=== PATIENT | female | born 1945 | race African-American/Black ===

== ENCOUNTER 2018-03-19 16:53 | Inpatient (IN) | payer OTHER ==
[~2018-03-19] VITALS: Ht 167.6 cm; Wt 90.7 kg
--- NOTE | 2018-03-19 17:16 | Emergency Room Report ---
History of Present Illness General Chief Complaint: Altered Level of Consciousness Source: Patient, EMS Present Illness HPI Patient is sent in to the ER by paramedics From a nursing facility/rehabilitation center Unfortunately patient is sent in without any list of medications Or medical history Patient is unable to provide history at that time given her symptomatic presentation Patient was noted to have syncope by the nursing staff Presents nauseated and vomiting Unclear regarding other trauma unclear regarding medications or change in medications Allergies: Coded Allergies: No Known Allergies (Unverified , 03/19/18) Patient History Limited by: medical condition Past Medical History: see triage record Pertinent Family History: unable to obtain Reviewed Nursing Documentation: PMH: Agreed; PSxH: Agreed Nursing Documentation-PMH Past Medical History: No History, Except For Hx Hypertension: Yes Review of Systems All Other Systems: limited - Other than the ones mentioned in the history of present illness all others are reviewed however they do stay limited due to the patient's mental status Physical Exam Vital Signs Date Time Temp Pulse Resp B/P (MAP) Pulse Ox O2 Delivery O2 Flow Rate FiO2 03/19/18 16:46 98.1 60 20 114/76 100 Non-Rebreather 15.0 98.1 Sp02 EP Interpretation: reviewed, normal General Appearance: moderate distress - Appears nauseated, uncomfortable, has eyes closed Head: normocephalic, atraumatic Eyes: bilateral eye PERRL ENT: normal pharynx, no angioedema Neck: supple Respiratory: no respiratory distress, no retraction, crackles - Bilaterally Cardiovascular #1: regular rate, rhythm Gastrointestinal: non tender, soft, no mass Musculoskeletal: other - Patient holding the vomiting bag, does not show any signs of focal deficit, however does not follow my commands Neurologic: responsive - To physical and verbal stimuli Skin: normal color, no rash Lymphatic: no adenopathy Medical Decision Making Diagnostic Impression: Primary Impression: Syncope Additional Impression: Encephalopathy ER Course Patient is a fairly complex patient with multiple differential to consideration including but not limited to cardiac cardiopulmonary and vascular emergencies Intracranial pathology is also entertained I was able to make contact with management at the facility Reports the patient has had a fairly large previous CVA It has affected her speech Patient's workup here shows normal blood work CT head does not show any acute pathology And patient admitted for further care Labs Test 03/19/18 17:33 03/19/18 17:53 5/17/18 04:00 White Blood Count 7.1 K/UL (4.8-10.8) 6.1 K/UL (4.8-10.8) Red Blood Count 4.77 M/UL (4.20-5.40) 4.48 M/UL (4.20-5.40) Hemoglobin 14.5 G/DL (12.0-16.0) 13.5 G/DL (12.0-16.0) Hematocrit 44.8 % (37.0-47.0) 42.1 % (37.0-47.0) Mean Corpuscular Volume 94 FL (80-99) 94 FL (80-99) Mean Corpuscular Hemoglobin 30.3 PG (27.0-31.0) 30.2 PG (27.0-31.0) Mean Corpuscular Hemoglobin Concent 32.3 G/DL (32.0-36.0) 32.2 G/DL (32.0-36.0) Red Cell Distribution Width 13.3 % (11.6-14.8) 13.1 % (11.6-14.8) Platelet Count 278 K/UL (150-450) 261 K/UL (150-450) Mean Platelet Volume 8.2 FL (6.5-10.1) 9.2 FL (6.5-10.1) Neutrophils (%) (Auto) 38.6 % (45.0-75.0) 46.0 % (45.0-75.0) Lymphocytes (%) (Auto) 48.8 % (20.0-45.0) 42.1 % (20.0-45.0) Monocytes (%) (Auto) 8.9 % (1.0-10.0) 9.6 % (1.0-10.0) Eosinophils (%) (Auto) 2.5 % (0.0-3.0) 1.4 % (0.0-3.0) Basophils (%) (Auto) 1.2 % (0.0-2.0) 0.9 % (0.0-2.0) Sodium Level 142 MMOL/L (136-145) 142 MMOL/L (136-145) Potassium Level 4.6 MMOL/L (3.5-5.1) 4.5 MMOL/L (3.5-5.1) Chloride Level 104 MMOL/L (98-107) 105 MMOL/L (98-107) Carbon Dioxide Level 31 MMOL/L (21-32) 31 MMOL/L (21-32) Anion Gap 7 mmol/L (5-15) 6 mmol/L (5-15) Blood Urea Nitrogen 20 mg/dL (7-18) 18 mg/dL (7-18) Creatinine 1.1 MG/DL (0.55-1.30) 0.9 MG/DL (0.55-1.30) Estimat Glomerular Filtration Rate 49.1 mL/min (>60) > 60 mL/min (>60) Glucose Level 100 MG/DL (74-106) 93 MG/DL (74-106) Lactic Acid Level 0.80 mmol/L (0.66-2.22) Calcium Level 9.4 MG/DL (8.5-10.1) 9.0 MG/DL (8.5-10.1) Total Bilirubin 0.2 MG/DL (0.2-1.0) Aspartate Amino Transf (AST/SGOT) 10 U/L (15-37) Alanine Aminotransferase (ALT/SGPT) 21 U/L (12-78) Alkaline Phosphatase 74 U/L (46-116) Total Creatine Kinase 35 U/L (26-308) Creatine Kinase MB 0.6 NG/ML (0.0-3.6) Creatine Kinase MB Relative Index 1.7 Troponin I 0.000 ng/mL (0.000-0.056) 0.000 ng/mL (0.000-0.056) Pro-B-Type Natriuretic Peptide 354 pg/mL (0-125) Total Protein 8.0 G/DL (6.4-8.2) Albumin 3.5 G/DL (3.4-5.0) Globulin 4.5 g/dL Albumin/Globulin Ratio 0.8 (1.0-2.7) Lipase 173 U/L (73-393) Urine Color Yellow Urine Appearance Clear Urine pH 5 (4.5-8.0) Urine Specific [place] 1.020 (1.005-1.035) Urine Protein 2+ (NEGATIVE) Urine Glucose (UA) Negative (NEGATIVE) Urine Ketones Negative (NEGATIVE) Urine Occult Blood 1+ (NEGATIVE) Urine Nitrite Positive (NEGATIVE) Urine Bilirubin Negative (NEGATIVE) Urine Urobilinogen Normal MG/DL (0.0-1.0) Urine Leukocyte Esterase 2+ (NEGATIVE) Urine RBC 0-2 /HPF (0 - 2) Urine WBC 2-4 /HPF (0 - 2) Urine Squamous Epithelial Cells Few /LPF (NONE/OCC) Urine Amorphous Sediment Few /LPF (NONE) Urine Bacteria Few /HPF (NONE) EKG Diagnostic Results Rate: normal Rhythm: NSR ST Segments: other - Nonspecific ST and T-wave changes Rhythm Strip Diag. Results EP Interpretation: yes Rate: 88 Rhythm: NSR, no PVC's, no ectopy Chest X-Ray Diagnostic Results Chest X-Ray Diagnostic Results : Chest X-Ray Ordered: Yes # of Views/Limited/Complete: 1 View Indication: Chest Pain EP Interpretation: Yes Interpretation: no consolidation, no effusion, no pneumothorax Impression: No acute disease Electronically Signed by: Reinaldo James DO CT/MRI/US Diagnostic Results CT/MRI/US Diagnostic Results : Impression CT head: refer to report for full specific no obvious acute pathology Last Vital Signs Date Time Temp Pulse Resp B/P (MAP) Pulse Ox O2 Delivery O2 Flow Rate FiO2 03/19/18 16:46 98.1 60 20 114/76 100 Non-Rebreather 15.0 98.1 Status: improved Disposition: ADMITTED INPATIENT Condition: Serious Reinaldo James DO March 19, 2018 17:16
[2018-03-19 17:46] LABS: BASOPHILS % (AUTO) 1.2 % (0.0-2.0); EOSINOPHILS % (AUTO) 2.5 % (0.0-3.0); HEMATOCRIT 44.8 % (37.0-47.0); HEMOGLOBIN 14.5 G/DL (12.0-16.0); LYMPHOCYTES % (AUTO) 48.8 % (20.0-45.0); MEAN CORPUSCULAR VOLUME 94 FL (80-99); MONOCYTES % (AUTO) 8.9 % (1.0-10.0); NEUTROPHILS % (AUTO) 38.6 % (45.0-75.0); PLATELET COUNT 278 K/UL (150-450); RED BLOOD COUNT 4.77 M/UL (4.20-5.40); RED CELL DISTRIBUTION WIDTH 13.3 % (11.6-14.8); WHITE BLOOD COUNT 7.1 K/UL (4.8-10.8)
[2018-03-19 18:04] LABS: ANION GAP 7 mmol/L (5-15); BLOOD UREA NITROGEN 20 mg/dL (7-18); CALCIUM 9.4 MG/DL (8.5-10.1); CARBON DIOXIDE 31 MMOL/L (21-32); CHLORIDE 104 MMOL/L (98-107); CREATININE 1.1 MG/DL (0.55-1.30); POTASSIUM 4.6 MMOL/L (3.5-5.1); SODIUM 142 MMOL/L (136-145)
[2018-03-19 18:15] LABS: ALANINE AMINOTRANSFERASE 21 U/L (12-78); ALBUMIN 3.5 G/DL (3.4-5.0); ALBUMIN/GLOBULIN RATIO 0.8 (1.0-2.7); ALKALINE PHOSPHATASE 74 U/L (46-116); ASPARTATE AMINO TRANSFERASE 10 U/L (15-37); BILIRUBIN,TOTAL 0.2 MG/DL (0.2-1.0); CKMB 0.6 NG/ML (0.0-3.6); CREATINE KINASE 35 U/L (26-308)
[2018-03-19 18:30] VITALS: BP 116/58
[2018-03-19 18:31] LABS: APPEARANCE,URINE CLEAR; BILIRUBIN, URINE NEGATIVE (NEGATIVE); GLUCOSE, URINE (UA) NEGATIVE (NEGATIVE); KETONES,URINE NEGATIVE (NEGATIVE); LEUKOCYTE ESTERASE ,URINE 2+ (NEGATIVE); NITRITE,URINE POSITIVE (NEGATIVE); PH,URINE 5 (4.5-8.0); PROTEIN,URINE 2+ (NEGATIVE); UROBILINOGEN,URINE NORMAL MG/DL (0.0-1.0)
[2018-03-19 18:40] LABS: COLOR,URINE YELLOW
[2018-03-19 19:46] VITALS: BP 141/93
[2018-03-19 22:57] VITALS: BP 117/69
[2018-03-20] VITALS (7 sets, daily range): BP systolic 105–127; BP diastolic 49–85
[2018-03-20 04:49] LABS: BASOPHILS % (AUTO) 0.9 % (0.0-2.0); EOSINOPHILS % (AUTO) 1.4 % (0.0-3.0); HEMATOCRIT 42.1 % (37.0-47.0); HEMOGLOBIN 13.5 G/DL (12.0-16.0); LYMPHOCYTES % (AUTO) 42.1 % (20.0-45.0); MEAN CORPUSCULAR VOLUME 94 FL (80-99); MONOCYTES % (AUTO) 9.6 % (1.0-10.0); PLATELET COUNT 261 K/UL (150-450); RED BLOOD COUNT 4.48 M/UL (4.20-5.40); RED CELL DISTRIBUTION WIDTH 13.1 % (11.6-14.8); WHITE BLOOD COUNT 6.1 K/UL (4.8-10.8)
[2018-03-20 05:06] LABS: ANION GAP 6 mmol/L (5-15); BLOOD UREA NITROGEN 18 mg/dL (7-18); CARBON DIOXIDE 31 MMOL/L (21-32); CHLORIDE 105 MMOL/L (98-107); CREATININE 0.9 MG/DL (0.55-1.30); POTASSIUM 4.5 MMOL/L (3.5-5.1); SODIUM 142 MMOL/L (136-145)
--- NOTE | 2018-03-20 08:34 | Diagnostic Imaging Report ---
Indication: Shortness of breath Technique: One view of the chest Comparison: none Findings: Body habitus limits evaluation. The heart is enlarged. There is perihilar interstitial congestion and hilar vascular fullness. The left lateral hemidiaphragm is obscured. This may be due to soft tissue but pleural and/or parenchymal disease of the left lung base cannot be ruled out Impression: Cardiomegaly Mild interstitial congestion Possible left basilar pleural and/or parenchymal disease
--- NOTE | 2018-03-20 08:42 | Diagnostic Imaging Report ---
Indications: Altered mental status Technique: Spiral acquisitions obtained through the brain. Angled axial and coronal 5 x 5 mm slices were reconstructed. Total dose length product 1449.78 mGycm. CTDI vol(s) 70.38 mGy. Dose reduction achieved using automated exposure control Comparison: None. Findings: There is encephalomalacia of the left posterior frontal and high anterior parietal lobes. There is also some encephalomalacia of the posterior left parietal lobe. There is resulting ex vacuo dilatation of the body of the left lateral ventricle. Old lacunar infarct is seen in the right basal ganglia region. There is generalized age-related enlargement of the ventricles and extra-axial CSF spaces. No acute intracranial hemorrhage or edema, mass effect, nor midline shift. Intact calvarium. Visualized orbits and sinuses are unremarkable. Impression: Chronic and age-related changes Multiple old infarcts Negative for acute intracranial bleed or mass effect The CT scanner at [facility] is accredited by the [employer] and the scans are performed using protocols designed to limit radiation exposure to as low as reasonably achievable to attain images of sufficient resolution adequate for diagnostic evaluation.
[2018-03-20] MEDS ORDERED: Aspirin Baby 81mg ORAL SCH (09:00)
[2018-03-20] MEDS ORDERED: Norco 5mg/325mg tab ORAL PRN (14:30)
[2018-03-20] MEDS ORDERED: HydrALAZINE 25mg tab ORAL PRN (14:30)
--- NOTE | 2018-03-20 16:16 | History and Physical ---
History of Present Illness General Date patient seen: March 20, 2018 Time patient seen: 14:00 Reason for Hospitalization: Altered Level of Consciousness Present Illness HPI 72 y/o female with a PMH of CVA, receptive dysarthria, HLD, HTN who presented from [facility] for syncope and vomiting. Per facility, patient had a syncopal episode where she lost consciousness for several minutes and subsequently started having vomiting. Patient had a CT head, which showed multiple old infarcts but no acute intracranial pathology. Patient was also noted to have a UTI and was started on IV abx. Further workup revealed left ICA occlusion, echo with EF 60%. Patient is currently resting in bed with no acute distress. Patient states that she does not know why she is here and denies any recollection of losing consciousness or vomiting. Denies cp, sob, n/v, abdominal pain. Allergies: Coded Allergies: No Known Allergies (Unverified , 03/19/18) Patient History History Provided By: Patient, Medical Record Healthcare decision maker Resuscitation status Full Code Advanced Directive on File No Review of Systems All Other Systems: negative except mentioned in HPI Physical Exam General Appearance: no apparent distress, alert HEENT: normocephalic, atraumatic Neck: non-tender, normal alignment Respiratory/Chest: chest wall non-tender, lungs clear, normal breath sounds Cardiovascular/Chest: normal peripheral pulses, normal rate, regular rhythm Extremities: normal range of motion, non-tender Skin Exam: normal pigmentation, warm/dry Neurologic: control area operator II-XII grossly normal, no motor/sensory deficits, alert, oriented x 3 Last 24 Hour Vital Signs Date Time Temp Pulse Resp B/P (MAP) Pulse Ox O2 Delivery O2 Flow Rate FiO2 03/20/18 12:00 96.8 73 16 127/85 97 Room Air 3.0 96.8 03/20/18 12:00 92 03/20/18 08:00 66 03/20/18 08:00 96.9 73 20 111/69 97 Room Air 3.0 96.9 03/20/18 04:00 97.0 84 20 123/65 97 Room Air 3.0 97.0 03/20/18 03:45 77 03/20/18 00:14 96.1 67 17 124/56 100 Room Air 3.0 96.1 03/19/18 22:57 36.02342 67 17 117/69 89 Room Air 15.0 208.4 03/19/18 22:57 98.0 67 17 117/69 89 Room Air 15.0 98.0 03/19/18 19:46 97.9 65 17 141/93 Room Air 97.9 03/19/18 18:30 98.3 61 17 116/58 89 Room Air 98.3 03/19/18 16:46 98.1 60 20 114/76 100 Non-Rebreather 15.0 98.1 Intake and Output 03/19/18 03/20/18 19:00 07:00 Intake Total 150 ml Output Total 200 ml Balance -200 ml 150 ml IV Total 150 ml Output Urine Total 200 ml # Voids 1 1 Laboratory Tests Test 03/19/18 17:33 03/19/18 17:53 03/20/18 04:00 03/20/18 10:20 White Blood Count 7.1 K/UL (4.8-10.8) 6.1 K/UL (4.8-10.8) Red Blood Count 4.77 M/UL (4.20-5.40) 4.48 M/UL (4.20-5.40) Hemoglobin 14.5 G/DL (12.0-16.0) 13.5 G/DL (12.0-16.0) Hematocrit 44.8 % (37.0-47.0) 42.1 % (37.0-47.0) Mean Corpuscular Volume 94 FL (80-99) 94 FL (80-99) Mean Corpuscular Hemoglobin 30.3 PG (27.0-31.0) 30.2 PG (27.0-31.0) Mean Corpuscular Hemoglobin Concent 32.3 G/DL (32.0-36.0) 32.2 G/DL (32.0-36.0) Red Cell Distribution Width 13.3 % (11.6-14.8) 13.1 % (11.6-14.8) Platelet Count 278 K/UL (150-450) 261 K/UL (150-450) Mean Platelet Volume 8.2 FL (6.5-10.1) 9.2 FL (6.5-10.1) Neutrophils (%) (Auto) 38.6 % (45.0-75.0) L 46.0 % (45.0-75.0) Lymphocytes (%) (Auto) 48.8 % (20.0-45.0) H 42.1 % (20.0-45.0) Monocytes (%) (Auto) 8.9 % (1.0-10.0) 9.6 % (1.0-10.0) Eosinophils (%) (Auto) 2.5 % (0.0-3.0) 1.4 % (0.0-3.0) Basophils (%) (Auto) 1.2 % (0.0-2.0) 0.9 % (0.0-2.0) Sodium Level 142 MMOL/L (136-145) 142 MMOL/L (136-145) Potassium Level 4.6 MMOL/L (3.5-5.1) 4.5 MMOL/L (3.5-5.1) Chloride Level 104 MMOL/L (98-107) 105 MMOL/L (98-107) Carbon Dioxide Level 31 MMOL/L (21-32) 31 MMOL/L (21-32) Anion Gap 7 mmol/L (5-15) 6 mmol/L (5-15) Blood Urea Nitrogen 20 mg/dL (7-18) H 18 mg/dL (7-18) Creatinine 1.1 MG/DL (0.55-1.30) 0.9 MG/DL (0.55-1.30) Estimat Glomerular Filtration Rate 49.1 mL/min (>60) > 60 mL/min (>60) Glucose Level 100 MG/DL (74-106) 93 MG/DL (74-106) Lactic Acid Level 0.80 mmol/L (0.66-2.22) Calcium Level 9.4 MG/DL (8.5-10.1) 9.0 MG/DL (8.5-10.1) Total Bilirubin 0.2 MG/DL (0.2-1.0) Aspartate Amino Transf (AST/SGOT) 10 U/L (15-37) L Alanine Aminotransferase (ALT/SGPT) 21 U/L (12-78) Alkaline Phosphatase 74 U/L (46-116) Total Creatine Kinase 35 U/L (26-308) Creatine Kinase MB 0.6 NG/ML (0.0-3.6) Creatine Kinase MB Relative Index 1.7 Troponin I 0.000 ng/mL (0.000-0.056) 0.000 ng/mL (0.000-0.056) 0.000 ng/mL (0.000-0.056) Pro-B-Type Natriuretic Peptide 354 pg/mL (0-125) H Total Protein 8.0 G/DL (6.4-8.2) Albumin 3.5 G/DL (3.4-5.0) Globulin 4.5 g/dL Albumin/Globulin Ratio 0.8 (1.0-2.7) L Lipase 173 U/L (73-393) Urine Color Yellow Urine Appearance Clear Urine pH 5 (4.5-8.0) Urine Specific [place] 1.020 (1.005-1.035) Urine Protein 2+ (NEGATIVE) H Urine Glucose (UA) Negative (NEGATIVE) Urine Ketones Negative (NEGATIVE) Urine Occult Blood 1+ (NEGATIVE) H Urine Nitrite Positive (NEGATIVE) H Urine Bilirubin Negative (NEGATIVE) Urine Urobilinogen Normal MG/DL (0.0-1.0) Urine Leukocyte Esterase 2+ (NEGATIVE) H Urine RBC 0-2 /HPF (0 - 2) Urine WBC 2-4 /HPF (0 - 2) Urine Squamous Epithelial Cells Few /LPF (NONE/OCC) Urine Amorphous Sediment Few /LPF (NONE) H Urine Bacteria Few /HPF (NONE) Height (Feet): 5 Height (Inches): 6.00 Weight (Pounds): 200 Medications Current Medications Medications (Trade) Dose Ordered Sig/Ananth Route PRN Reason Start Time Stop Time Status Last Admin Dose Admin Acetaminophen/ Hydrocodone Bitart ([place] 5/325) 1 tab Q4H PRN ORAL Moderate Pain (Pain Scale 4-6) 03/20/18 14:30 03/27/18 14:29 Aspirin (ASA) 81 mg DAILY ORAL 03/20/18 09:00 04/19/18 08:59 03/20/18 10:24 Atorvastatin Calcium (Lipitor) 40 mg BEDTIME ORAL 03/20/18 21:00 04/19/18 20:59 Clopidogrel Bisulfate (Plavix) 75 mg DAILY ORAL 03/21/18 09:00 04/20/18 08:59 Famotidine (Pepcid) 20 mg BID ORAL 03/20/18 18:00 04/19/18 17:59 Hydralazine HCl (Apresoline) 25 mg Q6HR PRN ORAL SPB >160 03/20/18 14:30 04/19/18 14:29 Lisinopril (Prinivil) 40 mg DAILY ORAL 03/21/18 09:00 04/20/18 08:59 Metoprolol Tartrate (Lopressor) 100 mg EVERY 12 HOURS ORAL 03/20/18 21:00 04/19/18 20:59 Ondansetron HCl (Zofran) 4 mg Q6H PRN IVP Nausea & Vomiting 03/20/18 00:30 04/19/18 00:29 Ondansetron HCl (Zofran) 4 mg Q6H PRN IVP Nausea & Vomiting 03/20/18 14:30 04/19/18 14:29 Sorbitol (Sorbitol) 15 ml BID ORAL 03/20/18 18:00 04/19/18 17:59 Assessment/Plan Problem List: (1) Syncope ICD Codes: R55 - Syncope and collapse SNOMED: 234584093 (2) Vomiting ICD Codes: R11.10 - Vomiting, unspecified SNOMED: 047599319 (3) UTI (urinary tract infection) ICD Codes: N39.0 - Urinary tract infection, site not specified SNOMED: 97295986 (4) Occlusion of left internal carotid artery ICD Codes: I65.22 - Occlusion and stenosis of left carotid artery SNOMED: 04087090, 184081930146777 (5) H/O: CVA (cerebrovascular accident) ICD Codes: Z86.73 - Personal history of transient ischemic attack (TIA), and cerebral infarction without residual deficits SNOMED: 184477610 (6) HLD (hyperlipidemia) ICD Codes: E78.5 - Hyperlipidemia, unspecified SNOMED: 34137720 (7) HTN (hypertension) ICD Codes: I10 - Essential (primary) hypertension SNOMED: 61460863 Status: stable, progressing Assessment/Plan Admit to tele Cardiology and Vascular Surgery consulted Carotid u/s showing L ICA occlusion F/u CT angio head and neck CT head negative F/u MRI brain IV CTX F/u urine cx Discussed with patient's insurance and patient is currently not contracted to this hospital. Per insurance, it was requested for patient to be transferred to another contracted hospital. At this time, patient is currently hemodynamically and clinically stable to be transferred to another hospital. D/w Dr. Solomon with [facility]. I spent more than 74 minutes on this patient's case with more than 50% spent on care and coordination of the case. D/w patient, nursing staff vascular surgeon, and first aid attendant. D/w employment case manager and patient's insurance. Claudia Buckley NP March 20, 2018 16:16
--- NOTE | 2018-03-20 16:33 | Cardiac Electrophysiology PN ---
Subjective Subjective [id number] Objective Last 24 Hour Vital Signs Date Time Temp Pulse Resp B/P (MAP) Pulse Ox O2 Delivery O2 Flow Rate FiO2 03/20/18 12:00 96.8 73 16 127/85 97 Room Air 3.0 96.8 03/20/18 12:00 92 03/20/18 08:00 66 03/20/18 08:00 96.9 73 20 111/69 97 Room Air 3.0 96.9 03/20/18 04:00 97.0 84 20 123/65 97 Room Air 3.0 97.0 03/20/18 03:45 77 03/20/18 00:14 96.1 67 17 124/56 100 Room Air 3.0 96.1 03/19/18 22:57 36.37078 67 17 117/69 89 Room Air 15.0 208.4 03/19/18 22:57 98.0 67 17 117/69 89 Room Air 15.0 98.0 03/19/18 19:46 97.9 65 17 141/93 Room Air 97.9 03/19/18 18:30 98.3 61 17 116/58 89 Room Air 98.3 03/19/18 16:46 98.1 60 20 114/76 100 Non-Rebreather 15.0 98.1 Intake and Output 03/19/18 03/20/18 19:00 07:00 Intake Total 150 ml Output Total 200 ml Balance -200 ml 150 ml IV Total 150 ml Output Urine Total 200 ml # Voids 1 1 Laboratory Tests Test 03/19/18 17:33 03/19/18 17:53 03/20/18 04:00 03/20/18 10:20 White Blood Count 7.1 K/UL (4.8-10.8) 6.1 K/UL (4.8-10.8) Red Blood Count 4.77 M/UL (4.20-5.40) 4.48 M/UL (4.20-5.40) Hemoglobin 14.5 G/DL (12.0-16.0) 13.5 G/DL (12.0-16.0) Hematocrit 44.8 % (37.0-47.0) 42.1 % (37.0-47.0) Mean Corpuscular Volume 94 FL (80-99) 94 FL (80-99) Mean Corpuscular Hemoglobin 30.3 PG (27.0-31.0) 30.2 PG (27.0-31.0) Mean Corpuscular Hemoglobin Concent 32.3 G/DL (32.0-36.0) 32.2 G/DL (32.0-36.0) Red Cell Distribution Width 13.3 % (11.6-14.8) 13.1 % (11.6-14.8) Platelet Count 278 K/UL (150-450) 261 K/UL (150-450) Mean Platelet Volume 8.2 FL (6.5-10.1) 9.2 FL (6.5-10.1) Neutrophils (%) (Auto) 38.6 % (45.0-75.0) L 46.0 % (45.0-75.0) Lymphocytes (%) (Auto) 48.8 % (20.0-45.0) H 42.1 % (20.0-45.0) Monocytes (%) (Auto) 8.9 % (1.0-10.0) 9.6 % (1.0-10.0) Eosinophils (%) (Auto) 2.5 % (0.0-3.0) 1.4 % (0.0-3.0) Basophils (%) (Auto) 1.2 % (0.0-2.0) 0.9 % (0.0-2.0) Sodium Level 142 MMOL/L (136-145) 142 MMOL/L (136-145) Potassium Level 4.6 MMOL/L (3.5-5.1) 4.5 MMOL/L (3.5-5.1) Chloride Level 104 MMOL/L (98-107) 105 MMOL/L (98-107) Carbon Dioxide Level 31 MMOL/L (21-32) 31 MMOL/L (21-32) Anion Gap 7 mmol/L (5-15) 6 mmol/L (5-15) Blood Urea Nitrogen 20 mg/dL (7-18) H 18 mg/dL (7-18) Creatinine 1.1 MG/DL (0.55-1.30) 0.9 MG/DL (0.55-1.30) Estimat Glomerular Filtration Rate 49.1 mL/min (>60) > 60 mL/min (>60) Glucose Level 100 MG/DL (74-106) 93 MG/DL (74-106) Lactic Acid Level 0.80 mmol/L (0.66-2.22) Calcium Level 9.4 MG/DL (8.5-10.1) 9.0 MG/DL (8.5-10.1) Total Bilirubin 0.2 MG/DL (0.2-1.0) Aspartate Amino Transf (AST/SGOT) 10 U/L (15-37) L Alanine Aminotransferase (ALT/SGPT) 21 U/L (12-78) Alkaline Phosphatase 74 U/L (46-116) Total Creatine Kinase 35 U/L (26-308) Creatine Kinase MB 0.6 NG/ML (0.0-3.6) Creatine Kinase MB Relative Index 1.7 Troponin I 0.000 ng/mL (0.000-0.056) 0.000 ng/mL (0.000-0.056) 0.000 ng/mL (0.000-0.056) Pro-B-Type Natriuretic Peptide 354 pg/mL (0-125) H Total Protein 8.0 G/DL (6.4-8.2) Albumin 3.5 G/DL (3.4-5.0) Globulin 4.5 g/dL Albumin/Globulin Ratio 0.8 (1.0-2.7) L Lipase 173 U/L (73-393) Urine Color Yellow Urine Appearance Clear Urine pH 5 (4.5-8.0) Urine Specific [place] 1.020 (1.005-1.035) Urine Protein 2+ (NEGATIVE) H Urine Glucose (UA) Negative (NEGATIVE) Urine Ketones Negative (NEGATIVE) Urine Occult Blood 1+ (NEGATIVE) H Urine Nitrite Positive (NEGATIVE) H Urine Bilirubin Negative (NEGATIVE) Urine Urobilinogen Normal MG/DL (0.0-1.0) Urine Leukocyte Esterase 2+ (NEGATIVE) H Urine RBC 0-2 /HPF (0 - 2) Urine WBC 2-4 /HPF (0 - 2) Urine Squamous Epithelial Cells Few /LPF (NONE/OCC) Urine Amorphous Sediment Few /LPF (NONE) H Urine Bacteria Few /HPF (NONE) Xu Livingston MD March 20, 2018 16:33
--- NOTE | 2018-03-20 16:35 | Diagnostic Imaging Report ---
Indication: Altered mental status Technique: sagittal T1 fast spin echo, axial T1 FLAIR, axial T2 FLAIR, axial T2 FS PROPELLER, axial T2* GRE, axial diffusion weighted images. ADC and exponential ADC maps generated Comparison: Brain CT 03/19/2018 Findings: No abnormal areas of restricted diffusion to suggest acute infarction. Considerable susceptibility artifact is seen in the periventricular white and mabry matter posterior lateral to the frontal horn of the left lateral ventricle. Less extensive signal void is seen in the same region on the T1 and T2-weighted images. Susceptibility artifact is also seen within or adjacent to the occipital horns of the lateral ventricles bilaterally. No corresponding signal abnormality is seen on any of the other sequences. No other evidence of acute hemorrhage or edema demonstrated. There is encephalomalacia of the right frontal and parietal lobe. Encephalomalacia of the left posterior parietal lobe is also noted, corresponding to the abnormalities described on recent CT. There is also encephalomalacia in the right basal ganglia region, also described on recent CT scan. No mass effect or midline shift. There is considerable periventricular deep white matter low-attenuation. Slight degree of susceptibility artifact is seen related to the previously demonstrated left middle cerebral artery stent. The presence or absence of associated signal void cannot be confidently assessed. There is considerable enlargement of the ventricles as well as of the extra-axial CSF spaces. Ventriculomegaly is asymmetric on the left, consistent with ex vacuo dilatation related to the surrounding encephalomalacia. Visualized orbits and sinuses are unremarkable. Impression: No evidence of acute infarct or mass effect Susceptibility artifact in or adjacent to the occipital horns of the bilateral lateral ventricles. This most likely represents old microhemorrhage in the adjacent subependymoma. This could conceivably represent a small amount of intraventricular acute hemorrhage, but absence of signal abnormalities on other sequences and on recent CT scan makes this much less likely. Otherwise, no evidence of acute intracranial hemorrhage Susceptibility artifact in and deep to the subependymal region posterolateral to the frontal horn of the left lateral ventricle. Most likely this represents old microhemorrhage related to prior ischemic insult. Old infarcts bilaterally, as described above and previously Chronic cerebral volume loss and periventricular deep white matter ischemic change Left middle cerebral artery stent, also demonstrated on prior CT scan
[2018-03-20] MEDS ORDERED: Sorbitol Solution UD 30ml ORAL SCH (18:00)
[2018-03-20] MEDS ORDERED: Isovue-370 150ml vial INJ PRN ×2 (18:45)
--- NOTE | 2018-03-20 20:00 | Consultation ---
DATE OF CONSULTATION: 03/20/2018 CARDIOLOGY CONSULTATION CONSULTING PHYSICIAN: Xu Livingston M.D. REFERRING PHYSICIAN: Suad Ashton M.D. REASON FOR CONSULTATION: Tachycardia and inferior infarct on the EKG. HISTORY OF PRESENT ILLNESS: The patient is a 72-year-old, lady with history of hypertension, dementia, was sent to the emergency room from nursing facility for her syncope as well as nausea and vomiting per nursing staff. The patient's EKG showed sinus rhythm with first-degree AV block and old inferior infarct. Cardiology consultation was obtained for further evaluation. At the time of my evaluation, the patient denies any chest pain, palpitation, or shortness of breath. REVIEW OF SYSTEMS: Review of systems was negative other than what was mentioned in the history of present illness. PAST MEDICAL HISTORY: 1. Hypertension. 2. History of dementia. FAMILY HISTORY: Noncontributory. SOCIAL HISTORY: She lives in snf. Does not smoke or drink alcohol. MEDICATIONS: Per reconciliation and include Plavix 75 mg daily, Lipitor 40 mg daily, lisinopril 40 mg daily, and aspirin 81 mg daily. PHYSICAL EXAMINATION: VITAL SIGNS: Blood pressure is 127/85, pulse is 72, respirations 16, and temperature 96.8 degrees. HEAD AND NECK: No JVD. LUNGS: Clear. CARDIOVASCULAR: Regular S1 and S2 with no gallop or murmur. ABDOMEN: Soft. EXTREMITIES: No pitting edema. LABORATORY AND DIAGNOSTIC DATA: Labs show white count of 6.1, hemoglobin 13.5, hematocrit 42.1, and platelet count of 261. Sodium is 142, potassium is 4.5, BUN of 18, creatinine of 0.9, and glucose of 93. Troponin negative x3. ASSESSMENT AND PLAN: 1. Status post syncope. The patient is a very poor historian. Currently denies any chest pain or shortness of breath, and already ruled out for myocardial infarction. Consider cardiac enzymes. The patient also underwent an echocardiogram that showed ejection fraction of 60%. We will watch the patient on telemetry at this time. 2. Hypertension, on lisinopril 40 mg daily and metoprolol 100 mg b.i.d. and p.r.n. hydralazine. 3. Hyperlipidemia, on Lipitor. 4. Questionable coronary artery disease or peripheral vascular disease. The patient is on aspirin, Plavix, metoprolol, and Lipitor. Thank you very much, Dr. Ashton, for allowing me to participate in the care of this patient. Please do not hesitate to contact me for any questions regarding my evaluation. Xu Livingston M.D. DR: RADHA JOB#: [id number] CC:
[2018-03-20] MEDS ORDERED: Atorvastatin 20mg tab ORAL SCH ×2 (21:00)
--- NOTE | 2018-03-20 22:45 | Consultation ---
DATE OF CONSULTATION: 03/20/2018 VASCULAR SURGERY CONSULTATION CONSULTING PHYSICIAN: Corby Chaudhry M.D. REFERRING PHYSICIANS: 1. Suad Ashton M.D. 2. Claudia Buckley, Nurse Practitioner REASON FOR CONSULTATION: Left carotid artery occlusion and history of stroke. HISTORY OF PRESENT ILLNESS: This is a 72-year-old female, who presented to the emergency room by paramedics. The patient resides in a fci. The patient has severe expressive aphasia, does understand, has extensive history of stroke with a known history of left carotid artery 100% occlusion. Duplex confirmed the imaging. She underwent a CT and MRI, which revealed old cerebral infarct. Vascular Surgery is consulted for further evaluation. The patient is currently having dinner. No complaints. She is unable to speak, but understands and follows simple commands. PAST MEDICAL HISTORY: As above. History of stroke, left-sided carotid artery 100% occlusion, expressive aphasia, hypertension, encephalopathy, and PAD. MEDICATIONS: See attached MAR. ALLERGIES: No known drug allergies. SOCIAL HISTORY: Unobtainable. FAMILY HISTORY: Unobtainable. SYSTEM REVIEW: Unobtainable due to stroke. PHYSICAL EXAMINATION: GENERAL: The patient is awake. She has expressive aphasia, but understands and follows simple commands. VITAL SIGNS: Temperature is 98.1, heart rate 60, blood pressure 115/76, respirations 20, and saturation 100%. She has palpable radial pulses. She does have carotid bruits. LUNGS: Clear to auscultation. HEART: Regular rate and rhythm. ABDOMEN: Soft and nontender. She has palpable femoral pulses. Feet are warm with intact pedal pulses bilaterally. LABORATORY DATA: WBC of 7.1, hemoglobin 14.5, and platelet count is 78,000. Sodium is 142, potassium 4.6, chloride 104, CO2 31, BUN is 20, and creatinine 1.1. Duplex reviewed. IMPRESSION: No acute infarct or mass effect on MRI of the brain. She has a history of bilateral old cerebral infarct. IMPRESSION: 1. Chronic 100% left internal carotid artery occlusion by duplex with old cerebral infarcts and an MRI of brain with no acute hemispheric ischemia or stroke. 2. Expressive aphasia, hypertension, and peripheral artery disease. RECOMMENDATIONS: 1. She needs to be on daily aspirin, Plavix, and statin therapy indefinitely. 2. We will obtain CT angiogram of the neck and brain to delineate her vasculopathy. Continue with aggressive PT, OT, and rehabilitation therapy. For 100% carotid artery occlusion, best treatment is medical therapy. The above was discussed at length with the patient and the nurse at bedside. Corby Chaudhry M.D. DR: LIZABETH JOB#: [id number] CC: Corby Chaudhry M.D.; Fax#: [phone] SUAD ASHTON M.D. ; FAX#: [phone] Claudia Buckley NP
[2018-03-21] MEDS ORDERED: Lisinopril 20mg tab ORAL SCH (09:00)
--- NOTE | 2018-03-21 12:46 | Cardiology Report ---
APPROVED REPORT EKG Measurement Heart [id number] Normal sinus rhythm Inferior infarct, age undetermined Abnormal ECG
--- NOTE | 2018-03-21 12:56 | Cardiology Report ---
APPROVED REPORT EXAM: Two-dimensional and M-mode echocardiogram with Doppler and color Doppler. INDICATION Altered LOC M-Mode DIMENSIONS IVSd1.4 (0.7-1.1cm)Left Atrium (MM)3.2 (1.6-4.0cm) LVDd4.9 (3.5-5.6cm)Aortic Root2.9 (2.0-3.7cm) PWd1.1 (0.7-1.1cm)Aortic Cusp Exc.2.3 (1.5-2.0cm) LVDs1.8 (2.5-4.0cm) PWs1.8 cm Normal left ventricular chamber size, systolic function and wall motion. Left ventricular ejection fraction estimated to be 60 %. Mild left ventricular hypertrophy. Anterior Echo-free space, may be due to pericardial fat or effusion. All other cardiac chamber sizes are within normal limits. Focal aortic valve sclerosis with adequate cusp excursion. Mildly thickened mitral valve leaflets with normal excursion. Mild mitral annulus and aortic root calcification. Normal pulmonic valve structure. Normal tricuspid valve structure. IVC is normal in size with physiological collapse. A color flow and spectral Doppler study was performed and revealed: No aortic insufficiency. No mitral regurgitation. Mitral diastolic velocities suggest mild left ventricular diastolic dysfunction (Grade I). No tricuspid regurgitation. Tricuspid systolic velocities suggests peak right ventricular systolic pressure of 13 mmHg. Trace pulmonic regurgitation present.
--- NOTE | 2018-03-27 06:59 | Diagnostic Imaging Report ---
APPROVED REPORT CPT Code: 70961 Vascular Symptoms Comments: Altered LOC Technically limited visualization due to physical challenges such as a short muscular neck. Doppler Spectral Velocity Analysis RightLeft RIGHT SIDE: CCA - Imaging reveals no significant plaque within the extracranial carotid arteries. The Doppler spectral flow analysis is within normal limits throughout the extracranial carotid arteries. VERTEBRAL- The vertebral artery was not well visualized. LEFT SIDE: CCA - The Doppler spectral flow analysis is abnormal (resistive) in the common carotid artery, suggestive of an intracranial occlusion. ICA- Imaging reveals no color and Doppler flow in the left proximal internal carotid artery. Findings compatible with occlusion. ECA - Imaging reveals patency of the external carotid artery. The Doppler spectral flow analysis is within normal limits in the external carotid artery. VERTEBRAL- The vertebral artery was not well visualized. ADEBAYO Richardson was notified of abnormal results at 1030 hours.
--- NOTE | 2018-03-28 06:05 | Discharge Summary ---
Discharge Summary Discharge Summary _ DATE OF ADMISSION: 03/19/2018 DATE OF DISCHARGE: 03/20/2018 CONSULTANTS: Dr. Xu Chaudhry BRIEF HOSPITAL COURSE: Patient is a 72-year-old female, with past medical history of CVA with receptive dysarthria, hyperlipidemia, hypertension presented from [facility] due to syncope and vomiting. Per facility, patient had a syncopal episode where she lost consciousness for several minutes and subsequently started to have some vomiting. On evaluation at ED, blood work was normal. Head CT showed multiple old infarcts but no acute intracranial pathology. Urinalysis was noted to have UTI and was started on IV antibiotics. EKG was in normal sinus rhythm. Chest x- ray showed no acute disease. She was admitted to telemetry for further work-up. She underwent cardiac evaluation, EKG was in normal sinus rhythm with first- degree AV block and old anterior infarct. Echocardiogram showed ejection fraction of 60%. Cardiac troponins were monitored and were negative. She was continued on anti-hypertensives, lisinopril 40 mg daily ,metoprolol tartrate 100 mg twice a day. She was given antiplatelet therapy. She was continued on Lipitor 40 mg daily at bedtime. Further evaluation revealed carotid ultrasound with left ICA occlusion. Vascular surgery was consulted. Patient has history of stroke with severe expressive aphasia and a known history of left carotid artery 100% occlusion. Duplex imaging confirms occlusion. MRI of the brain with no acute hemispheric ischemia or stroke. She was recommended dual antiplatelet therapy with aspirin and Plavix and to be continued on statin therapy. Carotid artery occlusion was suggested to be treated medically. She was planned to undergo CT angiogram of the neck and brain to delineate vasculopathy, however procedure, was cancelled and patient was transferred to a contracted facility. FINAL DIAGNOSES: Syncope Vomiting Urinary tract infection Occlusion of left internal carotid artery Old stroke Hypertension Hyperlipidemia DISPOSITION: Patient was transferred to [facility]. I have been assigned to dictate discharge summary on this account, and I was not involved in the patient's management. Martha Juares NP March 28, 2018 06:05
== END 2018-03-20 23:15 | disposition home or self-care (01) | DRG 68 ==
LOC: EDBD 16:53 → EMR 18:29 → EDBEDREQ 21:34 → 2E 22:15
DX: I65.22 Occlusion and stenosis of left carotid artery (principal); N39.0 Urinary tract infection, site not specified; R41.82 Altered mental status, unspecified; I69.320 Aphasia following cerebral infarction; I10 Essential (primary) hypertension; F03.90 Unspecified dementia, unspecified severity, without behavioral disturbance, psychotic disturbance, mood disturbance, and anxiety; E78.5 Hyperlipidemia, unspecified; Z79.02 Long term (current) use of antithrombotics/antiplatelets; I73.9 Peripheral vascular disease, unspecified; I44.0 Atrioventricular block, first degree; R55 Syncope and collapse; R11.2 Nausea with vomiting, unspecified; I25.2 Old myocardial infarction
CPT/HCPCS: 36415; 70450; 70551; 71045; 80048; 80053; 81003; 82550; 82553; 83605; 83690; 83880; 84484; 85025; 87040; 87081; 93005; 93306; 93880; 99285; J2405